=== PATIENT | male | born 1980 | race Hispanic/Latino ===

== ENCOUNTER 2016-07-31 13:00 | Day surgery (SDC) | payer SELFPAY ==
[~2016-07-31] VITALS: Ht 167.6 cm; Wt 69.0 kg
[~2016-07-31 13:00] MED LIST: PANT40TA3 PO; RANI300C PO; Sodium Chloride LOK Flush 10 mL Syringe IV PRN; fentaNYL-PF 50 mCg/mL 2 mL Inj IVPUSH PRN
[2016-07-31 14:02] VITALS: BP 127/74; PULSE 83; RESP 18; O2SAT 96
[2016-07-31] MEDS: 0.9% Sodium Chloride 1,000 ML IV PRN ×3 (14:03→14:59)
--- NOTE | 2016-07-31 15:07 | PCM.ENDCOL ---
Colonoscopy Date of Service: Jul 31, 2016 Physician Kameron Jacobson MD Indication for Procedure Rectal bleeding Post Procedure Dx & Findings: Hemorrhoids polyp diverticula Procedure Colonoscopy Prep adequate Withdrawal 10 minutes PROCEDURE IN DETAIL: After unremarkable rectal examination Olympus video colonoscope was inserted patient's anal canal and was advanced to cecum. Landmarks are identified including the ileocecal valve and the appendiceal orifice. Scope was withdrawn systematically. The mucosa of the cecum, ascending, transverse, descending, sigmoid, rectal mucosa lined with whitish, pink, smooth, glistening, normal-appearing mucosa, normal fine branching, underlying vascularity, normal haustra. The patient tolerated procedure and was transported to observation area. In the cecum there are two 1-2 mm polyps which were removed completely using cold snare. In the transverse colon, there were 2 diverticuli. In the rectum retroflexion was done which showed hemorrhoids. Anal canal was inspected carefully and the way out and hemorrhoids noted. Impression Polyp 2 status post complete removal Hemorrhoids Diverticuli Recommendation Repeat colonoscopy 5 years. Presedation Assessment Risks and Benefits Informed consent was obtained from the patient after all risks and benefits including but not limited to drug reaction, infection, pain, bleeding, perforation, as well as alternatives were discussed. Patient monitoring Continuous pulse oximetry, cardiac monitoring, blood pressure monitoring, IV access, and oxygen at 2L per nasal cannula. Periprocedural Fentanyl: Fentanyl 125mcg Incrementally Midazolam: Midazolam 6mg Incrementally Complications There were no periprocedural complications identified. Post Procedure Plan Post Procedure Recommendations 1. Restrict activities today. 2. Resume normal activities in the morning. 3. Resume medications. 4. Patient informed of normal post procedure side effects as bloating, drowsiness, blood streaking in the stool. 5. average risk CRCS. If colon polyps come back as: -Hyperplastic- can repeat colonoscopy in 10 years -Tubular adenoma- repeat colonoscopy in 5 years -Tubulovillous/villous adenoma- repeat colonoscopy in 3 years -If any dysplasia- return to clinic as soon as possible 6. Please don't hesitate to call me with any questions. Kameron Jacobson MD Jul 31, 2016 15:07
[2016-07-31 15:09] VITALS: BP 101/57; PULSE 60; RESP 14; O2SAT 98
[2016-07-31 15:19] VITALS: BP 101/60; PULSE 62; RESP 14; O2SAT 99
[2016-07-31 15:29] VITALS: BP 104/61; PULSE 60; RESP 14; O2SAT 99
--- NOTE | 2016-08-03 10:56 | PATH ---
SURGICAL PATHOLOGY Attending Physician:Kameron Jacobson M.D. CASE STATUS: Signed Out PATIENT NAME: CHAD DIAZ PID: [id number] : 1980 DATE COLLECTED:07/31/2016 00:00 SPECIMEN: Colon, Biopsy CLINICAL HISTORY: A: CECAL POLYPS X2 FINAL DIAGNOSIS: 1.CECAL POLYPS: BENIGN COLONIC MUCOSA WITH SUPERFICIAL MUCOSAL HYPERPLASIA AND MELANOSIS COLI. NEGATIVE FOR DYSPLASIA AND MALIGNANCY. MULTIPLE MICROSCOPIC LEVELS EXAMINED. ICD10 CODE K63.5 K63.89 GROSS DESCRIPTION: The specimen is received in one formalin filled container labeled with the patient's name, sublabeled "cecal polyps x2" and consists of 2 portions of tissue or debris which aggregate to 0.3 x 0.3 x 0.2 CM. The specimen is entirely submitted in one cassette. 08/01/2016 [facility] [place] MICRO DESCRIPTION: See diagnosis. ICD-9 CODES: CPT CODES: 1: 70962 Electronically Signed Out Cherri Ahuja MD [facility] [address], [place] [address] Technical component performed at [facility], [facility] [address], [place], [address]
== END 2016-07-31 23:59 | disposition home or self-care (01) ==
LOC: END 13:00
PROVIDERS: ATTEND Internal Medicine
DX: K63.5 Polyp of colon (principal); K57.30 Diverticulosis of large intestine without perforation or abscess without bleeding; K64.8 Other hemorrhoids; K59.00 Constipation, unspecified; K29.70 Gastritis, unspecified, without bleeding
CPT/HCPCS: 45385; J2250; J7030